=== PATIENT | male | born 1995 | race Caucasian/White ===

== ENCOUNTER → 2019-07-18 11:24 | Outpatient (REF) | payer BC, SELFPAY | LOC: ANHLAB 11:24 | PROVIDERS: PCP Family Medicine; Visit Provider Nurse Practitioner Family | DX: D22.5 Melanocytic nevi of trunk (principal); D22.39 Melanocytic nevi of other parts of face | CPT/HCPCS: 88305 ==

== ENCOUNTER 2020-04-18 14:42 | Outpatient (CLI) | payer BC, SELFPAY ==
--- NOTE | ~2020-04-18 | US_ITS ---
US pelvic complete w TV DATE: 04/18/2020 15:30 INDICATION: Pelvic and perineal pain. Patient taking testosterone. TECHNIQUE: Real-time imaging via transabdominal and transvaginal approach COMPARISON: None FINDINGS: The uterus measures 7.1 cm height, 2.5 cm AP dimension and 3.6 cm transverse dimension. Deepa tral endometrial echo complex measures 2.6 mm AP dimension. Right ovary 2.9 x 1.5 x 1.1 cm, with vascular flow. Left ovary 4.5 x 3.5 x 4.2 cm with vascular flow. Left ovarian cyst measures 4.3 x 3.3 x 3.4 cm. No pelvic mass or abnormal pelvic fluid collection is detected. IMPRESSION: Left ovarian 4.3 cm cyst Reviewed, dictated and finalized at [facility]. Reviewed, dictated and finalized at location [facility]. 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
== END 2020-04-18 14:43 | disposition home or self-care (01) ==
LOC: ANHIMG 14:44
PROVIDERS: Family Provider Family Medicine; PCP Family Medicine; Visit Provider Obstetrics & Gynecology
DX: R10.2 Pelvic and perineal pain (principal); N83.202 Unspecified ovarian cyst, left side
CPT/HCPCS: 76830; 76856

== ENCOUNTER 2020-07-29 10:28 | Outpatient (CLI) | payer BC, SELFPAY ==
--- NOTE | ~2020-07-29 | XR_ITS ---
EXAMINATION: XR knee LT 3V DATE: 07/29/2020 11:15 INDICATION: Left knee pain. TECHNIQUE: 3 views of left knee were obtained. COMPARISON: None. FINDINGS: Bone alignment is normal. No fracture. Joint spaces are well maintained. There is no knee j oint effusion. IMPRESSION: 1. Normal left knee. Reviewed, dictated and finalized at location [facility]. IMPRESSION: 1. Normal left knee.
--- NOTE | ~2020-07-29 | XR_ITS ---
EXAMINATION: XR hip BI 2V w AP pelvis DATE: 07/29/2020 11:15 INDICATION: Right leg pain. TECHNIQUE: An anteroposterior view pelvis and 2 views of each hip were obtained. COMPARISON: None. FINDINGS: Bone alignment is normal. No fracture. Joint spaces are well maintained. IMPRESSION: 1. Normal pelvis and hips. Reviewed, dictated and finalized at location [facility]. IMPRESSION: 1. Normal pelvis and hips.
--- NOTE | ~2020-07-29 | XR_ITS ---
EXAMINATION: XR tibia fibula RT 2V DATE: 07/29/2020 11:15 INDICATION: Right lower leg pain. TECHNIQUE: 2 views of right tibia and fibula were obtained. COMPARISON: None. FINDINGS: Bone alignment is normal. No fracture. Joint spaces are well maintained. IMPRESSION: 1. Normal right tibia and fibula. Reviewed, dictated and finalized at location [facility].
--- NOTE | ~2020-07-29 | XR_ITS ---
EXAMINATION: XR foot RT 2V DATE: 07/29/2020 11:15 INDICATION: Right foot pain. TECHNIQUE: 2 views of right foot were obtained. COMPARISON: None. FINDINGS: Bone alignment is normal. No fracture. Joint spaces are well maintained. IMPRESSION: 1. Normal right foot. Reviewed, dictated and finalized at location [facility]. IMPRESSION: 1. Normal right foot.
--- NOTE | ~2020-07-29 | XR_ITS ---
EXAMINATION: XR tibia fibula LT 2V DATE: 07/29/2020 11:15 INDICATION: Left lower leg pain. TECHNIQUE: 2 views of left tibia and fibula were obtained. COMPARISON: None. FINDINGS: Bone alignment is normal. No fracture. Joint spaces are well maintained. IMPRESSION: 1. Normal left tibia and fibula. Reviewed, dictated and finalized at location [facility].
--- NOTE | ~2020-07-29 | XR_ITS ---
EXAMINATION: XR foot LT 2V DATE: 07/29/2020 11:15 INDICATION: Left foot pain. TECHNIQUE: 2 views of left foot were obtained. COMPARISON: None. FINDINGS: There is mild hallux valgus. There is a bunionette deformity of the fifth digit. No fractur e. Joint spaces are normal. IMPRESSION: 1. Mild hallux valgus. 2. Bunionette. Reviewed, dictated and finalized at location [facility].
--- NOTE | ~2020-07-29 | XR_ITS ---
EXAMINATION: XR knee RT 3V DATE: 07/29/2020 11:15 INDICATION: Right knee pain. TECHNIQUE: 3 views of right knee were obtained. COMPARISON: None. FINDINGS: Bone alignment is normal. No fracture. Joint spaces are well maintained. There is no knee j oint effusion. IMPRESSION: 1. Normal right knee. Reviewed, dictated and finalized at location [facility]. IMPRESSION: 1. Normal right knee.
--- NOTE | ~2020-07-29 | XR_ITS ---
EXAMINATION: XR femur LT min 2V DATE: 07/29/2020 11:15 INDICATION: Left thigh pain. TECHNIQUE: 2 views of left femur on 4 radiographs were obtained. COMPARISON: None. FINDINGS: Bone alignment is normal. No fracture. Joint spaces are well maintained. There is no knee j oint effusion. IMPRESSION: 1. Normal left femur. Reviewed, dictated and finalized at location [facility]. IMPRESSION: 1. Normal left femur.
--- NOTE | ~2020-07-29 | XR_ITS ---
EXAMINATION: XR femur RT min 2V DATE: 07/29/2020 11:15 INDICATION: Right thigh pain. TECHNIQUE: 2 views of right femur on 4 radiographs were obtained. COMPARISON: None. FINDINGS: Bone alignment is normal. No fracture. Joint spaces are well maintained. There is no knee j oint effusion. IMPRESSION: 1. Normal right femur. Reviewed, dictated and finalized at location [facility]. IMPRESSION: 1. Normal right femur.
== END 2020-07-29 10:29 | disposition home or self-care (01) ==
LOC: ANHIMG 10:36
PROVIDERS: PCP Family Medicine; Visit Provider Physician Assistant
DX: M79.604 Pain in right leg (principal); M79.605 Pain in left leg; R10.2 Pelvic and perineal pain; M20.12 Hallux valgus (acquired), left foot
CPT/HCPCS: 73521; 73552; 73562; 73590; 73620

== ENCOUNTER 2022-12-06 15:30 | Outpatient (RCR) | payer OTHER, SELFPAY ==
--- NOTE | 2022-10-13 16:04 | PTOPEVAL1 ---
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; 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- some physical assist; going to start up again with [employer] classes--with ribbons, have not done since May; Reported Pain Level Pain Score Self Report neck pain Additional Pain Score Comments pain range in the past week 1-10; frustrating, annoying pain,is not debilitating; muscles always tense and tight; also have pain in mid to lower spine: increase pain: lean over doing artwork- varies 1-4 hours, being up on feet 2 hours, lie on R side decrease pain: stretch, tylenol, lie flat on back , recline in chair, heat/ice migraines: about every other week, 1-2x in that week, lasting 4- 6 hours- have meds for migraines awaken from pain with sleeping 2-3 x/night Assessment PT Clinical Summary Ranulfo has the diagnosis of neck pain. History includes migraines, scoliosis and back pain. Self assessment Neck Disability Index score of 48% limitation in activity. Job of art work and sleeping are disrupted due to pain. With the evaluation: pain is increased with cervical rotation to the L; postural changes in spine with side bend of head to R, scoliosis of lumbar spine with R hip elevated; tightness and spasms over cervical- thoracic and upper traps musculature, with weakness. Skilled PT services are indicated for modalities to decrease pain and spasms, therapeutic exercises to increase str
--- NOTE | 2022-10-13 16:05 | OPREHPOC ---
Outpatient Therapy Plan of Care This is a Multidisciplinary Plan of Care that may contain components documented by all disciplines (PT, OT, and ST.) PT Problem 1 PT Problem #1 Knowledge Deficit PT Goal 1 Goal 1* indep with HEP 2* demonstrate correct shoulder and neck position with exercises PT Problem 2 PT Problem #2 Pain PT Goal 1 Goal 1* pt report pain of 4/10 at worst 2* self assessment Neck Disability Index score of 36% limitation 3* pt report with sleeping, awaken 1x/night due to pain PT Problem 3 PT Problem #3 Impaired Strength PT Goal 1 Goal 1* pt perform 20 reps of R and L prone scapular retraction exercises with arms at 90' and overhead 2* pt maintain good positioning with exercises
--- NOTE | 2022-10-15 09:34 | PCPTNOTE ---
Pt. did not show for 10/15/22 appointment and did not answer when calling to check on it.
--- NOTE | 2022-11-08 13:22 | PTOPPROG ---
Assessment and note entered by Maria D Smallwood, PT Evaluation Information Assessment Status Progress Diagnosis neck pain Onset over the past year Subjective Information Ranulfo reports: feels like therapy is helping- muscles are not as tight and able to move more; is doing the exercises; not have migraines as often--much less now, excited about that; want to continue therapy to get better; PAIN: range in the past week 3-7/10; tight over neck and shoulders; with sleeping awaken due to pain 2x/night; increase pain: standing/walking alot, working- drawing and sitting; decrease pain: stretches, sitting better with working, lie down flat on back or L side; ice; tend not to use heat because hot already to start with; migraines less--- 0-1x/wk; Assessment PT Clinical Summary Ranulfo has received 8 PT sessions. Compared to the initial evaluation: pain rating at the high rating is the same at 7/10 and low from 1 to 3/10; migraines decreased from 1-2x to 0-1x/wk; sleeping has improved from awakening 2- 3x to 1-2x/night; Self assessment Neck Disability index rating is the same 48%; improved posture awareness and work station set up; education completed for HEP and posture. The goals were partially met. Continue PT treatment. Plan of Care Interventions Electrical Stimulation,Hot Pack/Cold Pack,Manual Therapy,Mechanical Traction,Neuro Re-education, Patient Education,Therapeutic Activities, Therapeutic Exercise,Ultrasound,Other Other Interventions dry needling, taping, IASTM PT Services Indicated Yes Treatment Frequency and 1-2x/wk for 4 visits Duration These treatments will address the objective and functional deficits as defined above. The patient will be advanced safely and appropriately in order for the patient to progress towards his/her prior level of function. Additional exercises will be introduced and as well as a comprehensive home exercise program upon discharge, if needed, ?to ensure carryover of functional gains achieved in the clinic. This treatment plan has been reviewed and agreement upon by the patient.
--- NOTE | 2022-11-08 13:23 | OPREHPOC ---
Outpatient Therapy Plan of Care This is a Multidisciplinary Plan of Care that may contain components documented by all disciplines (PT, OT, and ST.) PT Problem 1 PT Problem #1 Knowledge Deficit PT Goal 1 Goal 1* indep with HEP 2* demonstrate correct shoulder and neck position with exercises Progress Met Comment 11-08-22 progress met goals continue towards goals to progress education, HEP PT Problem 2 PT Problem #2 Pain PT Goal 1 Goal 1* pt report pain of 4/10 at worst 2* self assessment Neck Disability Index score of 36% limitation 3* pt report with sleeping, awaken 1x/night due to pain Progress Not Met Comment 11-08-22 progress not met: #1 7/10; #2 48%, #3 1-2x/night continue towards goals PT Problem 3 PT Problem #3 Impaired Strength PT Goal 1 Goal 1* pt perform 20 reps of R and L prone scapular retraction exercises with arms at 90' and overhead 2* pt maintain good positioning with exercises Progress Partially Met Comment 11-08-22 progress met goal 2; partially met #1 for arms at 90' continue towards goals
--- NOTE | 2022-12-06 16:08 | PTOPDC ---
Assessment and note entered by Maria D Smallwood, PT Evaluation Information Assessment Status Discharge Diagnosis neck pain Onset over the past year Subjective Information feel like doing better, watching positioning and the exercises at home; able to manage my aches and pains better; Reported Pain Level Pain Score Self Report Additional Pain Score Comments pain range of 2-6/10; back and neck, less in upper traps; increase pain: sleeping wrong, walking alot during the day decrease pain: ice, stretching, lie down awaken from sleep due to pain 0-2x/night; Assessment PT Clinical Summary Ranulfo has received 12 PT sessions. Compared to the last reassessment: pain rating from 3-7/10 to 2-6/10; improved sleeping with awakening 0-2x/night due to pain; improved self assessment functional activity score from 48% to 44%; increased scapular strength; decreased spasms and tenderness over R and L upper traps; improved posture awareness and positioning with job and home tasks; indep with HEP. The goals were partially met. Discharge PT services. Ranulfo is to continue with the home exercises. Plan of Care PT Services Indicated No
== END 2022-12-07 10:59 | disposition home or self-care (01) ==
LOC: ANHPT 15:30
PROVIDERS: PCP Family Medicine; Visit Provider Hospitalist
DX: M50.30 Other cervical disc degeneration, unspecified cervical region (principal); M43.9 Deforming dorsopathy, unspecified
CPT/HCPCS: 97014; 97110; 97112; 97140; 97161; 97530; 99199; G0283

== ENCOUNTER 2023-09-20 14:30 | Outpatient (RCR) | payer OTHER, SELFPAY ==
--- NOTE | 2023-07-07 15:19 | OPREHPOC ---
Outpatient Therapy Plan of Care This is a Multidisciplinary Plan of Care that may contain components documented by all disciplines (PT, OT, and ST.) PT Problem 1 PT Problem #1 Knowledge Deficit PT Goal 1 Goal *indep with HEP Target Visit 10 PT Problem 2 PT Problem #2 Pain PT Goal 1 Goal 1* pain rating at worst of 4/10 2* radicular pain to R knee at worst 3* radicular pain to L knee at worst 4* self assessment Oswestry rating of 30% limitation in activity Target Visit 10 PT Problem 3 PT Problem #3 Impaired Flexibility PT Goal 1 Goal improve mobility and activity, but pt able to perform motions 3x, without an increase in pain 1* R hip flexion 2* R hip IR 3* L hip flexion 4* L hip IR Target Visit 10 PT Problem 4 PT Problem #4 Impaired Strength PT Goal 1 Goal increase trunk strength to improve stability to spine and increase activity tolerance 1* perform 15 reps of sitting ball exercises with good stability trunk 2* pt perform bilateral UE 20# box lift floor/ waist 3x without an increase in pain reported Target Visit 10
--- NOTE | 2023-07-07 15:20 | PTOPEVAL1 ---
Assessment and note entered by Maira D Smallwood, PT Evaluation Information Assessment Status Evaluation Diagnosis low back pain Onset about 1 year ago Subjective Information progressive increase in low back pain; issues with back pain since 2019; no recent injury to back; had x ray of entire spine- per pt arthritis and scoliosis of back ; have referral to neurologist, appt not made yet; Activity: computer work and drawing; doing more to assist her dad, who has cancer--helping with home tasks, shopping, cleaning, etc. 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 He has issues with chronic pain in neck and back, with radicular numbness into both feet. And has a referral to neurologist, but not made the appt yet . Self assessment with the Oswestry functional score of 46% limitation in activity level. Sleep and walking are disrupted with pain. With the evaluation: standing trunk flexion increases pain and extension decreases pain; Straight leg test is positive on both R and L LE; pain is increased with supine hip flexion and IR motions bilateral. Skilled PT services are indicated for modalities to decrease pain and radicular symptoms; therapeutic exercises to increase trunk strength and stability with education for HEP. Plan of Care Interventions Electrical Stimulation,Hot Pack/Cold Pack,Manual Therapy,Mechanical Traction,Neuro Re-education, Pa
--- NOTE | 2023-08-17 13:34 | PTOPPROG ---
Assessment and note entered by Maria D Smallwood, PT Progress Information Assessment Status Progress Diagnosis low back pain Onset about 1 year ago Subjective Information feel like about the same as when I started therapy do get some relief from pain with the therapy; am more conscious of my body and posture when doing things; want to continue therapy Assessment PT Clinical Summary Ranulfo has received a total of 10 PT sessions. Compared to the initial evaluation: pain from 2- to 2-610; continues to have intermittent pain into both legs to feet; self assessment Oswestry from 46% to 40% limitation in activity level; reported sleeping, awaken from 3 to 1-2 x/night due to pain; increase trunk and hip strength; with bilateral UE box lift from waist/floor height 15# then pain increase; improved posture and body awareness; education for HEP and posture/ body mechanics. The goals were partially met. Continue PT treatment, reduce to 1x/wk. Plan of Care Interventions Electrical Stimulation,Hot Pack/Cold Pack,Manual Therapy,Mechanical Traction,Neuro Re-education, Patient/Caregiver Educati,Therapeutic Activities, Therapeutic Exercise,Ultrasound,Other Other Interventions tpaping, IASTM PT Services Indicated Yes Treatment Frequency and 1x/wk for 6 weeks Duration These treatments will address the objective and functional deficits as defined above. The patient will be advanced safely and appropriately in order for the patient to progress towards his/her prior level of function. Additional exercises will be introduced and as well as a comprehensive home exercise program upon discharge, if needed, ?to ensure carryover of functional gains achieved in the clinic. This treatment plan has been reviewed and agreement upon by the patient.
--- NOTE | 2023-08-17 13:35 | OPREHPOC ---
Outpatient Therapy Plan of Care This is a Multidisciplinary Plan of Care that may contain components documented by all disciplines (PT, OT, and ST.) PT Problem 1 PT Problem #1 Knowledge Deficit PT Goal 1 Goal *indep with HEP Target Visit 10 Progress Met Comment 08-17-23 progress met goal continue towards goal to progress education PT Goal 2 Target Visit 16 PT Problem 2 PT Problem #2 Pain PT Goal 1 Goal 1* pain rating at worst of 4/10 2* radicular pain to R knee at worst 3* radicular pain to L knee at worst 4* self assessment Oswestry rating of 30% limitation in activity Target Visit 10 Progress Not Met Comment 08-17-23 progress goals not met improved iwth #1 to 6; #4 to 40% limitation continue towards goals PT Goal 2 Target Visit 16 PT Problem 3 PT Problem #3 Impaired Flexibility PT Goal 1 Goal improve mobility and activity, but pt able to perform motions 3x, without an increase in pain 1* R hip flexion 2* R hip IR 3* L hip flexion 4* L hip IR Target Visit 10 Progress Partially Met Comment 08-17-23 progress met goal 1 continue towards other goals PT Goal 2 Target Visit 16 PT Problem 4 PT Problem #4 Impaired Strength PT Goal 1 Goal increase trunk strength to improve stability to spine and increase activity tolerance 1* perform 15 reps of sitting ball exercises with good stability trunk 2* pt perform bilateral UE 20# box lift floor/ waist 3x without an increase in pain reported Target Visit 10 Progress Not Met Comment
--- NOTE | 2023-09-20 15:25 | PTOPDC ---
Assessment and note entered by Maria D Smallwood, PT Discharge Report Assessment Status Discharge Diagnosis low back pain Onset about 1 year ago Subjective Information have been super busy with work and home/family activities; still doing the stretches for my back Reported Pain Level Pain Score Self Report Additional Pain Score Comments pain range of 3-6/10 in the past week; radiuclar pain- intermittent to L to outer toes and R to ankles increase pain: standing, lifting over 15-20#, decrease pain: rest, lie flat, ice or pain cream, tylenol Assessment PT Clinical Summary Ranulfo has received 15 PT sessions. Compared to the last progress report: pain from 2-6/10 to 3-6/10, continues to be radicular into both legs to ankles and toes; Oswestry self assessment from 40% to 38% limitation in activity level; sleeping same at awakening 1-2x/night due to pain; same with supine R and L hip motions increase pain; bilateral UE box lifting maximum weight from waist/floor height from 15 to 16#. Slight increase strength of trunk and hips with ball and mat exercises. Education completed for HEP, body mechanics and pain management. The goals were partially met. Discharge PT services. To continue with HEP and monitor activity. Plan of Care PT Services Indicated No
== END 2023-09-21 17:06 | disposition home or self-care (01) ==
LOC: ANHPT 14:30
PROVIDERS: PCP Family Medicine; Visit Provider Hospitalist
DX: M54.50 Low back pain, unspecified (principal); G89.29 Other chronic pain
CPT/HCPCS: 97012; 97110; 97112; 97140; 97161; 97530

== ENCOUNTER 2025-01-21 14:00 | Outpatient (RCR) | payer OTHER, SELFPAY ==
--- NOTE | 2024-10-24 15:38 | OPREHPOC ---
Outpatient Therapy Plan of Care This is a Multidisciplinary Plan of Care that may contain components documented by all disciplines (PT, OT, and ST.) PT Problem 1 PT Problem #1 Knowledge Deficit PT Goal 1 Goal / Goal Update Patient to demonstrate independence with HEP for improved self-reliance of symptom management. Target Visit 6 PT Problem 2 PT Problem #2 Pain PT Goal 1 Goal / Goal Update 1. Patient to report 25% improvement in quantity and quality of sleep due to minimal pain disruptions. 2. Patient will decrease their Modified Oswestry score by at least 10 points to indicate significant improvement in functional abilities and quality of life. Target Visit 12 PT Problem 3 PT Problem #3 Impaired Endurance PT Goal 1 Goal / Goal Update 1. ??Patient to report improved standing tolerance of >= 20 minutes for increased ADL endurance required to grocery shop. 2. Patient to improve distance ambulated during 6MWT from 1275 feet to 1350 feet to demonstrate an improvement in ADL endurance. Target Visit 12 PT Problem 4 PT Problem #4 Impaired Functional Mobility PT Goal 1 Goal / Goal Update 1. Patient to complete floor to/from waist transfers/lifts with minimal reported back pain or cueing required to ensure correct mechanics with functional lifting activities. 2. Patient to demonstrate an increase of CHRISTIANO cervical rotation AROM to >=60 degrees to improve safety with driving. Target Visit 12
--- NOTE | 2024-10-24 15:39 | PTOPEVAL1 ---
Assessment and note entered by Farzaneh Yates, PT Evaluation Information Assessment Status Evaluation Diagnosis chronic pain syndrome ICD-10 Condition Codes (PT) Cervicalgia M54.2,Pain in Thoracic Spine M54.6, Pain in low back M54.50 Subjective Information Primary Complaint: Back Pain History of current condition: Pt reports having chronic back pain gradually worsening over the last 5 years or so. Pt reports his entire spine is always a problem and therapy helped previously. However, he had to stop due to insurance. He thinks his level of function is staying about the same since his last visit here unless he is having a flare up. Sxs made worse with: prolonged standing/walking, lifting >=15lbs, grocery shopping Sxs improved with: stretches, dry needling, hot/ cold packs depending on the day, lumbar distraction CLOF: can attempt all ADLs and community mobility but will be in bed for a few days after, sleep reduced by 50% PLOF: unemployed Reported Pain Level Pain Score 3,5: Self Report Assessment PT Clinical Summary Pt is a 29 year old who presents to physical therapy with a primary complaint of chronic neck and back pain. Pt demonstrates poor deep neck flexor endurance, BLE weakness, neck pain, back pain, decreased mobility, abnormal posture, decreased endurance, and chronic pain syndrome that limit their ability to perform ADLs. Pt will benefit from skilled physical therapy to address the above listed deficits and return to PLOF. HEP instructed and written handout provided, EX tolerated well with no adverse effects to note post-session. Pt was educated on importance of adherence to HEP. Pt was also educated on anatomy, prognosis, home modalities, and PT POC. Plan of Care Interventions Aquatic Therapy,Electrical Stimulation,Gait Training,Hot Pack/Cold Pack,Manual Therapy, Mechanical Traction,Patient/Caregiver Education, Therapeutic Activities,Therapeutic Exercise,Self- Care/Home Management Other Interventions taping, dry needling PT Services Indicated Yes Treatment Frequency and 1-2x/wk for 12 sessions Duration These treatments will address the objective and functional deficits as defined above. The patient will be advanced safely and appropriately in order for the patient to progress towards his/her prior level of function. Additional exercises will be introduced and as well as a comprehensive home exercise program upon discharge, if needed, ?to ensure carryover of functional gains achieved in the clinic. This treatment plan has been reviewed and agreement upon by the patient.
--- NOTE | 2024-12-05 12:36 | PCPTNOTE ---
Pt canceled due to work conflict.
--- NOTE | 2025-01-02 14:35 | OPREHPOC ---
Outpatient Therapy Plan of Care This is a Multidisciplinary Plan of Care that may contain components documented by all disciplines (PT, OT, and ST.) PT Problem 1 PT Problem #1 Knowledge Deficit PT Goal 1 Goal / Goal Update Patient to demonstrate independence with HEP for improved self-reliance of symptom management. 01-02-25 progress goal met continue to progress education Target Visit 21 PT Problem 2 PT Problem #2 Pain PT Goal 1 Goal / Goal Update 1. Patient to report 25% improvement in quantity and quality of sleep due to minimal pain disruptions. 2. Patient will decrease their Modified Oswestry score by at least 10 points to indicate significant improvement in functional abilities and quality of life. 01-02-25 progress goals not met Target Visit 12 PT Goal 2 Goal / Goal Update 01-02-25 progress NEW GOALS: 1* pt report pain rating at worst of cervical area 6/10 2* pt report with sleeping, awaken 2x/night due to pain 3* pt report 1 migraine/wk Target Visit 21 PT Problem 3 PT Problem #3 Impaired Endurance PT Goal 1 Goal / Goal Update 1. ??Patient to report improved standing tolerance of >= 20 minutes for increased ADL endurance required to grocery shop. 2. Patient to improve distance ambulated during 6MWT from 1275 feet to 1350 feet to demonstrate an improvement in ADL endurance. 01-02-25 progress goals not met continue towards Target Visit 21 PT Problem 4 PT Problem #4 Impaired Functional Mobility PT Goal 1 Goal / Goal Update 1. Patient to complete floor to/from waist transfers/lifts with minimal reported back pain or cueing required to ensure correct mechanics with functional lifting activities. 2. Patient to demonstrate an increase of CHRISTIANO cervical rotation AROM to >=60 degrees to improve safety with driving. 01-02-25 progress goal 1 met; continue towards goal 2 Target Visit 21
--- NOTE | 2025-01-02 14:36 | PTOPPROG ---
Assessment and note entered by Maria D Smallwood, PT Assessment Status Progress Diagnosis chronic pain syndrome ICD-10 Condition Codes (PT) Cervicalgia M54.2,Pain in Thoracic Spine M54.6, Pain in low back M54.50 Subjective Information coming here helps increase the strength and flexibility of my neck; amount of migraines is reduced; have been trying to remember to take breaks and stretch- but when really into a project , do not stretch like I should; sleep is worse, pain is more affecting my sleep lately; have been having more dizziness lately--have issues with dizziness, told and have a new referral for neurologist for the dizziness; dry needling really helps the headaches; went to pain management and had steroid injections into neck and upper back- feel like they helped; want to continue therapy; NECK pain in the past week:3-10/28; bilateral cervical paraspinals and upper traps; with sleeping, awaken 3-4x/night due to pain and have problems falling asleep; sleeping total time of ~ 4 hours have migraines 2x/week, last 6 hours, take med that reduces severity and makes feel weird, cannot do anything; standing tolerance reported 10 minutes then have to sit down BACK pain range in the past week -08/28 Assessment PT Clinical Summary Ranulfo has received a total of 11 PT sessions, for cervical and lumbar pain. With today's assessment: pain in neck of 3-810 and back of 3-610; migraines occur about 2x/wk with 6 hour duration; sleeping is disrupted due to pain, awaken 3-4x/night and have problems falling asleep, with total time of sleep ~ 4 hours; standing tolerance is 10 minutes, due to neck and back pain; cervical active ROM rotation to R 55'/L 50'- both increase pain; 6 minute walking test distance of 1275' and maximum lifting with bilateral UE box from waist/floor height of 15# and stopped due to back and neck pain. Modalities give some pain relief. Education for home exercises, posture and pain control. The goals were partially achieved. Continue PT treatment. Emphasis on treatment for cervical and thoracic areas. The goals were partially achieved. Continue PT treatments Plan of Care Interventions Electrical Stimulation,Hot Pack/Cold Pack,Manual Therapy,Mechanical Traction,Neuro Re-education, Patient/Caregiver Education,Therapeutic Activities ,Therapeutic Exercise,Ultrasound,Other Other Interventions dry needling, taping PT Services Indicated Yes Treatment Frequency and 1-2x/wk for 10 visits Duration These treatments will address the objective and functional deficits as defined above. The patient will be advanced safely and appropriately in order for the patient to progress towards his/her prior level of function. Additional exercises will be introduced and as well as a comprehensive home exercise program upon discharge, if needed, ?to ensure carryover of functional gains achieved in the clinic. This treatment plan has been reviewed and agreement upon by the patient.
== END 2025-01-22 23:59 | disposition home or self-care (01) ==
LOC: ANHPT 14:00
PROVIDERS: PCP Hospitalist; Visit Provider Hospitalist
DX: M54.2 Cervicalgia (principal); G89.4 Chronic pain syndrome
CPT/HCPCS: 97014; 97110; 97113; 97140; 97162; 97530; G0283